=== PATIENT | male | born 1945 | race Caucasian/White ===

== ENCOUNTER 2016-12-17 14:41 | Emergency (ER) | payer OTHER ==
[2016-12-17 14:52] VITALS: TEMP 98.8
[2016-12-17] MEDS ORDERED: IPRATROPIUM/ALBUTEROL 3 ML DEYVIAL ONE (17:09)
[2016-12-17] MEDS ORDERED: IPRATROPIUM/ALBUTEROL 3 ML DEYVIAL IH ONE ×2 (17:23→17:43)
--- NOTE | 2016-12-17 17:37 | EDPHY ---
H & P Stated Complaint: URI sxs x several days;coughing up green mucous Time Seen by Provider: 12/17/16 17:03 - Personal History Current Tetanus Diphtheria and Acellular Pertussis (TDAP): Yes - Medical/Surgical History Other PMH: bronchitis - Social History Smoking Status: Former smoker Constitutional: Initial Vital Signs Temperature (C) 37.1 C 12/17/16 14:49 Heart Rate 78 12/17/16 14:49 Respiratory Rate 18 12/17/16 14:49 Blood Pressure 156/100 H 12/17/16 14:49 O2 Sat (%) 93 12/17/16 14:49 O2 Delivery Mode Room Air Allergies/Adverse Reactions: No Known Allergies Allergy (Unverified 12/17/16 14:52) Home Medications: Medication Instructions Recorded AZITHROMYCIN [Z-PACK] 250 mg PO DAILY #1 packet 12/17/16 Albuterol Sulfate [Proventil Hfa] 6.7 gm IH 12/17/16 Albuterol [Proventil Inhaler] 1 - 2 puffs IH Q4 #1 mdi 12/17/16 predniSONE 40 mg PO DAILY #4 tab 12/17/16 Medical Decision Making - Diagnostics Imaging Results: Imaging Impressions Chest X-Ray 12/17/16 15:20 Impression: Suspect airways disease. No pneumonia. Imaging: Discussed imaging studies w/ night coordinator Radiologist, I viewed and interpreted images myself ED Course/Re-evaluation: CHIEF COMPLAINT: Dyspnea HISTORY OF PRESENT ILLNESS: The patient is a 71 y/o male arriving with his complaining of dyspnea for the last few days. He had a prior episode of bronchitis in April 2016 with wheezing that was treated with a z-pack and albuterol. He has no history of asthma or other respiratory disease. He states his current symptoms began a few days ago following recent allergy symptoms. He has an associated sore throat that may have started before the wheezing. He denies chest pain, fever, vomiting, or other symptoms. REVIEW OF SYSTEMS: A 10 point review of systems was performed and is negative with the exception of the elements mentioned in the history of present illness. PHYSICAL EXAM: HR, BP, O2 Sat on room air, RR. Temp noted General Appearance: Alert, well hydrated, appropriate, and non-toxic appearing. Head: Atraumatic without scalp tenderness or obvious injury Eyes: Pupils equal, round, reactive to light and accommodation, EOMI, no trauma , no injection. Nose: Atraumatic, no rhinorrhea, clear. Throat: There is no erythema or exudates, no lesions, normal tonsils, mucus membranes moist. Neck: Supple, non-tender, no lymphadenopathy. Respiratory: No retractions, no distress, and no accessory muscle use. Lungs have bilateral end expiratory wheezing with prolonged expiratory phase. Cardiovascular: Regular rate and rhythm, no murmurs, rubs, or gallops. Good capillary refill all extremities. Gastrointestinal: Abdomen is soft, non-tender, non-distended, no masses, no rebound, no guarding, no peritoneal signs. Musculoskeletal: Normal active ROM of all extremities, atraumatic. Neurological: Alert, appropriate, and interactive. Nonfocal neuro exam. Skin: No rashes, good turgor, no nodules on palpation. PAST MEDICAL HISTORY: Bronchitis PAST SURGICAL HISTORY: No pertinent surgeries SOCIAL HISTORY: at bedside. PCP in [place]. 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 DIAGNOSTICS/PROCEDURES/CRITICAL CARE TIME: Chest x-ray: reactive airways disease, no infiltrate DIFFERENTIAL DIAGNOSIS: The differential diagnosis for the patient's shortness of breath and hypoxemia included but was not limited to pneumonia, myocardial infarction, acute mountain sickness, high altitude pulmonary edema, congestive heart failure, and pulmonary embolus. MEDICAL DECISION MAKING: This is a 71 y/o male with a history of one prior episode of bronchitis complaining of a few-day history of dyspnea. He has bilateral expiratory wheezing with prolonged expiratory phase. He has no other complaints. Chest x- ray shows mild reactive airways disease. Duo neb improved symptoms here. Plan to treat with Prednisone with first dose here, albuterol inhaler, and z-pack. He will be referred to pulmonology for follow up. Return precautions given. He is comfortable with this plan. - Data Points Medications Given: Discontinued Medications Albuterol/Ipratropium (Duoneb) 3 ml IH EDNOW ONE Stop: 12/17/16 17:24 Last Admin: 12/17/16 17:31 Dose: 3 ml Albuterol/Ipratropium (Duoneb) 3 ml IH EDNOW ONE Stop: 12/17/16 17:44 Last Admin: 12/17/16 17:49 Dose: 3 ml Prednisone (Prednisone) 40 mg PO EDNOW ONE Stop: 12/17/16 17:44 Last Admin: 12/17/16 17:53 Dose: 40 mg Departure - Departure Disposition: Home, Routine, Self-Care Clinical Impression: Reactive airway disease Qualifiers: Asthma severity: mild intermittent Asthma complication type: with acute exacerbation Qualified Code(s): J45.21 - Mild intermittent asthma with (acute) exacerbation Condition: Good Instructions: Reactive Airways Disease (ED) Additional Instructions: 1. Use albuterol inhaler as prescribed for wheezing and shortness of breath. 2. Take prednisone as prescribed for the next 3 days. 3. Take z-pack as prescribed. Be sure to complete entire prescription. 4. Follow up with your dog behaviorist in the next week. You've also been referred to a local dog behaviorist if needed. 5. Return to the ED for worsening shortness of breath, chest pain, fever, or other worsening of condition. Referrals: KHADIJAH IBARRA MD [Other] - As per Instructions Maximo Bazzi MD [Medical Doctor] - As per Instructions Prescriptions: predniSONE 40 mg PO DAILY #4 tab Report Scribed for: Armen Lind Report Scribed by: Danita Levin Date of Report: 12/17/16 Time of Report: 17:37
[2016-12-17] MEDS ORDERED: predniSONE 20 MG TAB PO ONE (17:43)
[2016-12-17 18:14] VITALS: BP 143/92; PULSE 100; RESP 16; O2SAT 92
== END 2016-12-17 18:12 | disposition home or self-care (01) ==
DX: J45.21 Mild intermittent asthma with (acute) exacerbation (principal); Z87.891 Personal history of nicotine dependence

== ENCOUNTER 2017-01-28 11:30 | Emergency (ER) | payer OTHER ==
[2017-01-28] MEDS ORDERED: IPRATROPIUM/ALBUTEROL 3 ML DEYVIAL IH ONE (11:38)
--- NOTE | 2017-01-28 12:08 | EDPHY ---
HPI/HX/ROS/PE/MDM Narrative: CHIEF COMPLAINT: Wheezing, shortness of breath HPI: This patient is a 71 year old male complaining of dyspnea and wheezing onset yesterday. He was seen 11 days ago for similar symptoms, and felt well 3 days following that visit after completing a z-pack as well as steroid medication and using an albuterol inhaler. He was also seen one month ago at urgent care for the same complaint. Yesterday, he began feeling poorly again and could not sleep last night due to hearing hsi own inspiratory rales. His chest feels tight ans he has a productive cough with greenish yellow sputum. He states his intercostal muscles feel sore, but denies chest pain. No fever, vomiting, or other associated symptoms. He has an appointment for followup on 02/[address] Simons, health equipment servicer. REVIEW OF SYSTEMS: Aside from elements discussed in the HPI, a comprehensive 10-point review of systems was reviewed and is negative. PMH: Denies. 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 PHYSICAL EXAM: General:Patient is alert, in no acute distress. ENT:Eyes are normal to inspection. ENT inspection normal. Neck: Normal inspection. Full range of motion. Respiratory:No respiratory distress. Breath sounds normal bilaterally. Cardiovascular: Regular rate and rhythm. Strong peripheral pulses. Normal cap refill. Abdomen:The abdomen is nontender to palpation. There are no peritoneal signs. There are normal bowel sounds. Back: Normal to inspection. No tenderness to palpation. Skin: Normal color. No rash. Warm and dry. Extremities: Normal appearance. Full range of motion. Neuro: Oriented x3. Normal motor function. Normal sensory function. ED Course: 71 year old male presents with a recurrence of cough and shortness of breath onset yesterday similar to symptoms he had 11 days ago treated here in this emergency department. Lung sounds clear bilaterally on exam. Patient had already completed a saline breathing treatment prior to examination. Plan to repeat chest x-ray. Chest x-ray shows bronchitis. No evidence of pneumonia. Plan to discharge home in good condition with a prescription for Z-pack and Prednisone. He will follow up with his health equipment servicer as scheduled on . Return precautions discussed. The patient is comfortable with this plan. MDM: This patient presents with recurring bronchitis-like symptoms. His CXR is negative. His Pox is borderline at 89-91% but he is in no distress. 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 He already has a pulmonology appointment in a few days, and is reluctant to take steroids which might impact his evaluation at that time. We agreed to write a prescription for another z-jerome and prednisone, which he will take if needed only. I see no signs of PE, TAD, CHF or PNA at this time. - Data Points Imaging Results: Imaging Impressions Chest X-Ray 01/28/17 12:50 Impression: 1. Bronchitis/airways disease. 2. No definite pneumonia. Imaging: I viewed and interpreted images myself Medications Given: Discontinued Medications Albuterol/Ipratropium (Duoneb) 3 ml IH EDNOW ONE Stop: 01/28/17 11:39 Last Admin: 01/28/17 11:39 Dose: 3 ml General Time Seen by Provider: 01/28/17 12:05 Initial Vital Signs: Initial Vital Signs Temperature (C) 37.0 C 01/28/17 11:35 Heart Rate 85 01/28/17 11:35 Respiratory Rate 20 01/28/17 11:35 Blood Pressure 145/72 H 01/28/17 11:35 O2 Sat (%) 88 L 01/28/17 11:35 O2 Delivery Mode Room Air Allergies/Adverse Reactions: No Known Allergies Allergy (Verified 01/28/17 18:34) Home Medications: Medication Instructions Recorded predniSONE 40 mg PO DAILY #4 tab 12/17/16 AZITHROMYCIN [Z-PACK] 250 mg PO DAILY 5 Days 01/28/17 Aspirin [Aspirin 81mg (*)] 1 tab PO DAILY 01/28/17 Herbals/Supplements -Info Only 1 ea PO DAILY 01/28/17 Multivitamins [Multivitamin (*)] 1 tab PO DAILY 01/28/17 Departure - Departure Disposition: Home, Routine, Self-Care Clinical Impression: Acute bronchitis Qualifiers: Bronchitis organism: unspecified organism Qualified Code(s): J20.9 - Acute bronchitis, unspecified Condition: Good Instructions: Acute Bronchitis (ED) Additional Instructions: 1. Follow up with Dr. Simons, health equipment servicer, as scheduled on Tuesday. 2. Take your Z-pack and Prednisone as prescribed. 3. Return to the emergency department for worsening shortness of breath, high fever, or other worsening of condition. Referrals: KHADIJAH IBARRA MD [Other] - As per Instructions Bahman Simons MD [Medical Doctor] - As per Instructions Prescriptions: AZITHROMYCIN [Z-PACK] 250 mg PO DAILY 5 Days Report Scribed for: Jeyson Hong Report Scribed by: Kiah Barr Date of Report: 01/28/17 Time of Report: 12:08 Physician Review and Approval Statement: Portions of this note were transcribed by an ED scribe. I personally performed the history, physical exam, and medical decision making; and confirm the accuracy of the information in the transcribed note.
[2017-01-28 13:43] VITALS: O2SAT 89
[2017-01-28 14:10] VITALS: BP 150/81; PULSE 72; RESP 16; TEMP 97.5
== END 2017-01-28 14:09 | disposition home or self-care (01) ==
DX: J20.9 Acute bronchitis, unspecified (principal); Z79.82 Long term (current) use of aspirin

== ENCOUNTER 2017-01-28 16:26 | Observation (INO) | payer OTHER ==
[2017-01-28] MEDS ORDERED: IPRATROPIUM/ALBUTEROL 3 ML DEYVIAL IH ONE (16:45)
[2017-01-28] MEDS ORDERED: ALBUTEROL 3 ML DEYVIAL IH ONE ×3 (16:45→18:08)
[2017-01-28] MEDS ORDERED: methylPREDNISolone SOD SUCC 125 MG/2 ML VIAL IVP ONE (16:45)
--- NOTE | 2017-01-28 16:48 | EDPHY ---
H & P Time Seen by Provider: 01/28/17 16:32 HPI/ROS: CHIEF COMPLAINT: Trouble breathing HISTORY OF PRESENT ILLNESS: Patient was seen in June for similar symptoms and then in our emergency department on December 17. He was seen in our emergency department earlier today with 48 hours of shortness of breath, wheezing, cough with greenish-yellow sputum, sore throat, and history of cleaning out a very ariana garage about 4 days ago. Patient denies leg swelling or hemoptysis. No recent travel or immobilization. No history of DVT or PE. He has some "intercostal soreness" really only with coughing but not otherwise. No fever or chills. He received nebulizer treatment earlier today but did not get any steroids and returns dizzy feels worse. He has an appointment see granulating blender next week and did not want to go there feeling 100% better. REVIEW OF SYSTEMS: Eye: no change in vision ENT: no sore throat Cardiac: no chest pain or syncope Pulmonary: HPI Abdomen: no vomiting, diarrhea, abdominal pain Musculoskeletal: no back pain Skin: no rash or urticaria Neuro: no headache Constitutional: no fever : no urinary symptoms A comprehensive 10 point review of systems is otherwise negative aside from elements mentioned in the history of present illness. PAST MEDICAL HISTORY: Appendectomy, cervical fusion. Perales cyst surgery Social history: Nonsmoker, retired orthopedist General Appearance: Alert and conversant, cooperative. Eyes: No scleral icterus. ENT, Mouth: Normal mucous membranes. No angioedema. Respiratory: Bilateral expiratory wheezing, but speaks in full sentences Cardiovascular: Regular rate and rhythm. No murmur. Gastrointestinal: Abdomen is soft and non tender. Neurological: Alert and oriented x3. Normally conversant. Face symmetric, normal movement and sensation in all extremities. Skin: Warm and dry, no rashes. No urticaria. Musculoskeletal: No peripheral edema and no joint swelling. No calf tenderness. Psychiatric: Not agitated. Emergency Department course/MDM: Patient had chest x-ray earlier which was negative for CHF or cardiomegaly or pneumonia. I think acute coronary syndrome or pneumonia, or pulmonary embolism would be unlikely. IV Solu-Medrol 125 an multiple nebulizer treatments. Initial saturation noted at 87%. 1805: Re-evaluated and is still wheezy, still in the high 80s on 2 L nasal cannula oxygen. Plan for admission, 2 g IV magnesium, continuous albuterol nebulizer treatment. Smoking Status: Former smoker Constitutional: Initial Vital Signs Temperature (C) 36.9 C 01/28/17 16:27 Heart Rate 97 01/28/17 16:27 Respiratory Rate 20 01/28/17 16:27 Blood Pressure 126/70 H 01/28/17 16:27 O2 Sat (%) 87 L 01/28/17 16:27 Allergies/Adverse Reactions: No Known Allergies Allergy (Verified 01/28/17 18:34) Home Medications: Medication Instructions Recorded predniSONE 40 mg PO DAILY #4 tab 12/17/16 AZITHROMYCIN [Z-PACK] 250 mg PO DAILY 5 Days 01/28/17 Aspirin [Aspirin 81mg (*)] 1 tab PO DAILY 01/28/17 Herbals/Supplements -Info Only 1 ea PO DAILY 01/28/17 Multivitamins [Multivitamin (*)] 1 tab PO DAILY 01/28/17 Medical Decision Making Differential Diagnosis: Differential diagnosis considered for shortness of breath including but not limited to pulmonary infectious process, COPD, asthma, pulmonary embolus and congestive heart failure. Consult/Admit Bed Type: [place] [id number] - Data Points Laboratory Results: Laboratory Results 01/28/17 18:08 01/28/17 18:08 Sodium 135 mEq/L mEq/L (134-144) Potassium 4.1 mEq/L mEq/L (3.5-5.2) Chloride 97 mEq/L mEq/L (97-110) Carbon Dioxide 25 mEq/l mEq/l (22-31) Anion Gap 13 mEq/L mEq/L (8-16) BUN 16 mg/dL mg/dL (7-23) Creatinine 0.9 mg/dL mg/dL (0.7-1.3) Estimated GFR > 60 Glucose 161 mg/dL H mg/dL (70-100) Calcium 9.3 mg/dL mg/dL (8.5-10.4) Medications Given: Discontinued Medications Albuterol (Proventil Neb) 3 ml IH EDNOW ONE Stop: 01/28/17 16:46 Last Admin: 01/28/17 17:24 Dose: 3 ml Albuterol (Proventil Neb) 3 ml IH EDNOW ONE Stop: 01/28/17 17:16 Last Admin: 01/28/17 17:35 Dose: 3 ml Albuterol (Proventil Neb) 12 ml IH EDNOW ONE Stop: 01/28/17 18:09 Last Admin: 01/28/17 18:40 Dose: 12 ml Albuterol/Ipratropium (Duoneb) 3 ml IH EDNOW ONE Stop: 01/28/17 16:46 Last Admin: 01/28/17 17:12 Dose: 3 ml Magnesium Sulfate (Magnesium Sulf 2 Gm (Premix)) 50 mls @ 50 mls/hr IV EDNOW ONE Stop: 01/28/17 19:08 Last Admin: 01/28/17 18:35 Dose: 50 mls Methylprednisolone Sodium Succinate (Solu-Medrol) 125 mg IVP EDNOW ONE Stop: 01/28/17 16:46 Last Admin: 01/28/17 17:24 Dose: 125 mg Departure - Departure Disposition: [facility] Acute Clinical Impression: Hypoxemia Acute bronchitis Qualifiers: Bronchitis organism: unspecified organism Qualified Code(s): J20.9 - Acute bronchitis, unspecified Condition: Good
[2017-01-28] MEDS ORDERED: MAGNESIUM SULF 2 GM/WATER 50 ML IV ONE (18:09)
[2017-01-28 18:12] LABS: % IMMATURE GRANULYOCYTES 0.4 % (0.0-1.1); ABSOLUTE IMMATURE GRANULOCYTES 0.04 10^3/uL (0.00-0.10); ADD DIFF? NO; ADD MORPH? NO; ADD SCAN? NO; ATYPICAL LYMPHOCYTE FLAG 0 (0-99); FRAGMENT RBC FLAG 0 (0-99); HEMATOCRIT 38.1 % (40.0-51.0); HEMOGLOBIN 13.3 g/dL (13.7-17.5); LEFT SHIFT FLG 0 (0-99); LIPEMIA HEMOLYSIS FLAG 90 (0-99); MEAN CELL HEMOGLOBIN 32.8 pg (27.9-34.1); MEAN CELL HEMOGLOBIN CONCENTR. 34.9 g/dL (32.4-36.7); MEAN CELL VOLUME 93.8 fL (81.5-99.8); MEAN PLATELET VOLUME 8.7 fL (8.7-11.7); PLATELET CLUMPS FLAG 0 (0-99); PLATELET COUNT 184 10^3/uL (150-400); RED BLOOD CELL COUNT 4.06 10^6/uL (4.40-6.38); RED CELL DISTRIBUTION WIDTH 12.8 % (11.5-15.2)
[2017-01-28 18:50] LABS: ANION GAP 13 mEq/L (8-16); CALCIUM 9.3 mg/dL (8.5-10.4); CARBON DIOXIDE 25 mEq/l (22-31); CHLORIDE 97 mEq/L (97-110); CREATININE 0.9 mg/dL (0.7-1.3); GLOMERULAR FILTRATION RATE > 60; GLUCOSE 161 mg/dL (70-100); POTASSIUM 4.1 mEq/L (3.5-5.2); SODIUM 135 mEq/L (134-144)
[2017-01-28] MEDS ORDERED: ACETAMINOPHEN 325 MG TAB PO PRN (19:45)
[2017-01-28] MEDS ORDERED: ONDANSETRON 4 MG/2 ML VIAL IVP PRN (19:45)
[2017-01-28] MEDS ORDERED: IBUPROFEN 600 MG TAB PO PRN (19:48)
--- NOTE | 2017-01-28 20:32 | GHP ---
[f rep st] HISTORY AND PHYSICAL DATE OF ADMISSION: 01/28/2017 CHIEF COMPLAINT: Shortness of breath. 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 He has a new cough with a greenish yellow sputum. He has a sore throat. He todd sawyer out a ariana garage 4 days ago. He has some chest wall pain that he feels is due to strain from his coughing. He was seen in the emergency room this morning and discharged home; however, conditio n continued to worsen so he re-presented 2nd ER visit in 24 hours and is now being admitted under ob servation. He does not have a history of asthma or COPD and has never been a smoker. He had a similar episode of reactive airways disease exacerbation 3 weeks ago related to a viral infection and improved with steroids, a Z-Amos and albuterol inhalers. PAST MEDICAL HISTORY: Superficial venous thrombosis. PAST SURGICAL HISTORY: Cervical fusion, pilonidal cyst removal, appendectomy age 8, knee scope and Perales cyst removal. MEDICATIONS: Please see computer's record for full detailed list. ALLERGIES: No known drug allergies. SOCIAL HISTORY: He has never been a smoker. He drinks 4-6 alcoholic beverages per day. 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 His son lives with him here in [place]. Kath santizo practiced in [place], [place]. He is and his girlfriend is at bedside. REVIEW OF SYSTEMS: Complete review of systems obtained. Review of systems negative regarding const itutional, HEENT, GI, pulmonary, cardiovascular, , hematology, skin, musculoskeletal, endocrine, p sych, except for positives and negatives as noted in HPI. FAMILY HISTORY: Both his father and his son have suffered from asthma. PHYSICAL EXAMINATION: GENERAL: Well-developed, well-nourished male, in no acute distress. Tempera ture is 36.9, pulse 97, respirations 20, blood pressure 126/70, saturating 87% on room air. EYES: Normal conjunctivae, pupils equal and react to light. ENT: Normal ears and nose. Hearing intact. Normal lips and teeth. Oropharynx moist. NECK: Trachea midline. No thyromegaly. CHEST: Normal res piratory effort. LUNGS: Scattered wheezing throughout with rales and rhonchi. CARDIOVASCULAR: Reg ular rhythm. No murmur. No extremity edema. ABDOMEN: Soft, nontender. No hepatosplenomegaly. S KIN: Warm, dry, intact. No rash. MUSCULOSKELETAL: No cyanosis or clubbing. Strength 5/5 upper a nd lower extremities. NEURO: Cranial nerves intact, normal sensation to light touch. Alert and or iented x3. PSYCHIATRIC: Normal mood and affect. Normal judgment and insight. Normal memory. LABORATORY DATA: White count 11.03, hematocrit 38.1, platelets 184, sodium 135, potassium 4.1, chlo ride 97, bicarb 25, BUN 16, creatinine 0.9, glucose 161. This case was discussed with Dr. Basilio. This is his 2nd ER visit in the same day and he is now comin g in for observation for ongoing failure of outpatient management. Chest x-ray was done on his ER visit earlier today, and was consistent with bronchitis. There was n o pneumonia. ASSESSMENT/PLAN: 1. Reactive airways disease exacerbation secondary to acute bronchitis. He got a dose of IV Solu-M edrol in the emergency room and will now start him on oral prednisone. We will schedule nebulizers and start antibiotics. 2. Acute respiratory failure. Hypoxemic on presentation, now stabilized on oxygen which will be co ntinued. Hopefully, this can be weaned off soon. 3. Daily alcohol use. I doubt he will withdrawal but this will be monitored closely. ADMISSION STATUS: 1. Will admit to observation. Depending on how quickly he progresses will determine length of hosp italization. 2. Deep venous thrombosis prophylaxis. He is moderate to high risk. [facility] 3. Code status is full. /[id number]/MODL
[2017-01-28] MEDS: AZITHROMYCIN 250 MG TAB PO SCH (21:15)
[2017-01-29] MEDS: IPRATROPIUM/ALBUTEROL 3 ML DEYVIAL IH SCH ×3 (00:02→11:43)
[2017-01-29] MEDS: AZITHROMYCIN 250 MG TAB PO SCH (08:15)
[2017-01-29 08:38] VITALS: BP 136/75; TEMP 98.3
[2017-01-29] MEDS ORDERED: ASPIRIN 81 MG CHEWABLE TAB PO SCH (09:00)
[2017-01-29] MEDS ORDERED: predniSONE 20 MG TAB PO SCH (09:00)
[2017-01-29] MEDS ORDERED: ENOXAPARIN 40 MG/0.4 ML SYR SC SCH (09:00)
--- NOTE | 2017-01-29 11:37 | HOSPPROG ---
Hospitalist Progress Note Assessment/Plan: 71 yo M w new reactive airway disease, borderline hypoxemia rad: suspect environmental trigger vs viral illness lifelong non smoker continue steroids and azithro late in life development unusual and noted pulm to see- has outpt follow up ?PE: rarely, PE can present as rad check ddimer alcohol use: no signs withdrawal dispo: pending eval Subjective: improved symptomatically. cxr clear (interp by me). case d/w dr moura Objective: Vital Signs Temp Pulse Resp BP Pulse Ox 36.8 C 78 15 136/75 H 92 01/29/17 08:00 01/29/17 08:00 01/29/17 08:00 01/29/17 08:00 01/29/17 08:00 Laboratory Results 01/28/17 Unknown 01/28/17 01/29/17 01/30/17 05:59 05:59 05:59 Intake Total 500 Balance 500 - Physical Exam Constitutional: no apparent distress, appears nourished Eyes: PERRL, anicteric sclera Ears, Nose, Mouth, Throat: moist mucous membranes, hearing normal Cardiovascular: regular rate and rhythym, no murmur, rub, or gallop Respiratory: no respiratory distress, no rales or rhonchi, other (prolonged expiratory phase. rare wheeze) Gastrointestinal: normoactive bowel sounds, soft, non-tender abdomen Genitourinary: no bladder fullness, No coreas in urethra Skin: warm, normal color Musculoskeletal: full muscle strength, no muscle tenderness Neurologic: AAOx3 Psychiatric: interacting appropriately Lymph, Heme, Immunologic: no cervical LAD ICD10 Worksheet Patient Problems: Problems Problem Status Onset Acute bronchitis Acute Hypoxemia Acute
[2017-01-29 11:57] VITALS: PULSE 83; RESP 16; O2SAT 90
--- NOTE | 2017-01-29 14:24 | GCON ---
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 He had an episode back in June related to exposure, I believe at the [employer] show , where there was quite a bit of aerosolized dust and he had shortness of breath and chest tightness, and was treated with bronchodilators, with substantial improvement. On 12/17/2016, he had a similar episode, which may have been associated with grass exposure. At that point he was treated with nebulizers, a Z-Amos, and I believe a short course of prednisone with substantial improvement. There was potentially another episode in April of 2016, where he was treated similarly. In any case, he was admitted to the hospital now with 48 hours of wheezing, cough, green to yellow sputum, and was found to have an oxygen saturation of 85% to 87% on room air. A chest x-ray was read as peribronchial thickening and possible hyperexpansion, though there are no flattened diaphragms, and no infiltrates. He was treated with Solu- Medrol nebulizer, Zithromax, magnesium, and nebulizers, and admitted to the floor, where he has had substantial improvement, though his oxygen saturation does seem to fluctuate some. He did not have asthma as a kid, but his son has asthma, as did his father. He reports significant allergies, particularly to dust, and clearly to cats, as well as potential grasses. At each episode of ,symptoms when he has been treated with beta agonist therapy, he has had substantial and rapid improvement. He has led a very active life, participating in many different types of activities and sports, and has not previously had trouble with his breathing. There are also some sleep concerns, while he is clearly not obese, he does have snoring, and witnessed apneas, as well as daytime sleepiness. Complicating the situation are a number of factors involved in poor sleep habits, notably a fair amount of alcohol of 3-4 drinks per day. He wakes frequently at night, and frequently naps during the day. Of note, however, he has normal hematocrit and normal bicarb, which can both be elevated in patients with longstanding untreated sleep apnea. REVIEW OF SYSTEMS: Otherwise negative. PAST MEDICAL HISTORY: 1. Bronchitis episodes as described above. 2. Allergies. PAST SURGICAL HISTORY: 1. A C4-5, 5-6, 6-7 cervical fusion complicated by dysphagia, pneumomediastinum in 2011, but no ongoing clear aspirations at this point. 2. Appendectomy. 3. Arthroscopy. 4. A rowland cyst removal. 5. Pilonidal cyst removal. 6. Tonsillectomy. SOCIAL HISTORY: He is a lifelong nonsmoker. He did have secondhand smoke exposure. Does drink 4-6 drinks per day, but no recreational drug use. FAMILY HISTORY: Includes asthma in both his father and son. CURRENT MEDICATIONS: Include Tylenol, DuoNeb, aspirin, Zithromax, Lovenox, Motrin, Zofran, prednisone 40 mg daily. PHYSICAL EXAMINATION: VITAL SIGNS: He was afebrile. Blood pressure was 136/75 , heart rate of 90, respirations 15, oxygen saturation was 92% on room air. GENERAL: He was very pleasant, medium build male, in no apparent distress, and able to speak in full sentences without using accessory muscles for breathing. HEENT: Pupils equally round and reactive to light. Nonicteric and noninjected. Mucous membranes are moist without erythema or exudate. Posterior pharynx had generous tonsillar pillars, and a large uvula, but a normal size tongue and a normal-sized hard palate, and no micrognathia or retrognathia. NECK: Showed no jugular vein distention. Breath sounds were clear to auscultation bilaterally, without wheezes, rubs or rales. HEART: Regular rate and rhythm without murmurs, rubs, gallops. ABDOMEN: Soft, nontender, nondistended without hepatosplenomegaly. EXTREMITIES: Show no clubbing, cyanosis, or edema. NEUROLOGIC: Grossly nonfocal. SKIN: Warm and dry without evidence of rash. OBJECTIVE DATA: Includes a chest x-ray on 12/17 and 01/28/2017, both of which were reported to have peribronchial thickening, but looked quite normal to me, without evidence of hyperinflation. His white count was 11, hematocrit was 38, platelets were 184. Basic metabolic panel was normal. D-dimer was tested today and is in the normal range. ASSESSMENT AND PLAN: 1. Shortness of breath and wheezing, I think that his history is consistent with asthma, and may be adult onset in nature. I suggest that we treat it as such with prednisone 20 mg a day for 2 weeks, which he can stop without a taper. I would also add on Advair 100/50 one puff twice a day in the meantime, and he should stay on that until we are able to do more thorough diagnostics, but certainly finish the azithromycin that he is on now, and he can continue with p.r.n. albuterol. He will get PFTs and methacholine challenge in a few weeks after his current exacerbation resolves. 2. Hypoxemia. This could easily be related to underlying asthma or possibly sleep apnea in him. I see no evidence of heart failure. I think pulmonary embolism is highly unlikely with a negative D-dimer and I would simply titrate his O2 to a normal saturation, which he looks really quite good on room air currently. 3. Potential sleep apnea. He has enough risk factors, particularly observed apneas and snoring at night, that he may have mild sleep apnea. At some point, he will need an outpatient sleep study, which we can do in the near future. I think in the short term, improving his sleep habits, we discussed today in great detail, would help quite a bit. Minimizing his alcohol and eventually we will get the sleep study. /[id number]/MODL MTDD
--- NOTE | 2017-01-29 14:49 | GDS ---
[f rep st] DISCHARGE SUMMARY DISCHARGE DIAGNOSES: 1. New asthma with reactive airway disease exacerbation. 2. History of superficial venous thrombosis. HOSPITAL COURSE: Please see admission history and physical by Dr. Vanessa Michelle. The patient pres ented with increased work of breathing. He has symptoms consistent with [id number] development of reactive airway disease. He was treated for bronchitis in December of this year but he took only a cou ple days of steroids. 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 He was admitted here with a normal chest x-ray and reactive air disease. He received Solu-Medrol in the emergency department and daily prednisone. Today he had borderline hypoxia with sat's as low a s 89% on room air. He had prolonged expiratory phase and scattered wheezes, consistent with reactiv e airway disease. He was seen by Dr. Acosta Simons, and has an appointment to see him as an outpatient in a couple days. He was discharged on long-acting beta agonist inhaled steroid, a couple days of o ral prednisone, and a Z-Amos; he already has an albuterol inhaler at home. He was ruled out for PE w ith a normal D-dimer. /[id number]/MODL
[2017-01-29] MEDS ORDERED: FLUTICASONE/SALMETER 100/50MCG DISKUS IH SCH (21:00)
[2017-01-30] MEDS ORDERED: predniSONE 20 MG TAB PO SCH (09:00)
== END 2017-01-29 14:36 | disposition home or self-care (01) ==
LOC: F3E 20:04
PROVIDERS: ADMIT Internal Medicine; ATTEND Internal Medicine
DX: J45.901 Unspecified asthma with (acute) exacerbation (principal); Z86.718 Personal history of other venous thrombosis and embolism; R06.9 Unspecified abnormalities of breathing
CPT/HCPCS: 96365; 96375; 99285; G0378; J1650

== ENCOUNTER → 2017-06-02 | Outpatient (CLI) | payer OTHER | LOC: BHFA 13:00 | PROVIDERS: ATTEND Internal Medicine Cardiovascular Disease | DX: J45.909 Unspecified asthma, uncomplicated (principal) | CPT/HCPCS: 94060; 94070; 94726; 94729; J7674; 78452-PO; 93017-PO; A9500-PO; J2785-PO ==